=== PATIENT | female | born 1985 | race Caucasian/White ===

== ENCOUNTER 2025-01-16 05:13 | Inpatient (IN) | payer OTHER, BC, MEDICAID ==
[~2025-01-16] VITALS: Ht 160 cm; Wt 86.2 kg
--- NOTE | ~2025-01-16 | OR ---
[facility] [address] [place] [address] Draft DATE OF OPERATION: 01/16/2025 SURGEON: Elvia Owens DO PREOPERATIVE DIAGNOSES: 1. Intrauterine at 39 weeks 3 days gestation. 2. Large fibroid uterus. 3. In vitro fertilization . 4. Abnormal glucose in . 5. section by maternal request. POSTOPERATIVE DIAGNOSES: 1. Intrauterine at 39 weeks 3 days gestation. 2. Large fibroid uterus. 3. In vitro fertilization . 4. Abnormal glucose in . 5. section by maternal request. PROCEDURE PERFORMED: Primary low transverse section by maternal request. ANESTHESIA: Spinal with postoperative TAP block. QUANTITATIVE BLOOD LOSS: 718 mL. DRAINS: Naik to gravity. COMPLICATIONS: None. FINDINGS: Delivery of viable female born in the JENNIE position via primary low transverse uterine incision. Large amount of clear amniotic fluid. Nuchal cord x1 loose and was easily reduced. Large, approximately 8 cm, subserosal fibroid in the anterior aspect of the uterus near the left cornu with no palpable impingement or distortion of the uterine cavity. Hemostasis at the end of the procedure. PATIENT NAME: MANNIE VILLALBA OPERATIVE REPORT DATE OF : 87 REPORT #: [id number] PHYSICIAN: ELVIA OWENS) PCP: ORLY HULL REPORT IS CONFIDENTIAL AND NOT TO BE RELEASED WITHOUT AUTHORIZATION [facility] [address] [place], [place] [address] Draft INDICATIONS: Ms. Villalba is a very pleasant 39-year-old, G4, P0-0-3-0, with IUP at 39 weeks 3 days gestation, presents to Labor and Delivery for scheduled primary by maternal request. complicated by IVF , large fibroid uterus and abnormal glucose and after careful consideration and deliberation, the patient and her partner have requested primary . Risks, benefits, and alternatives were discussed in detail with the patient. The patient understands and wished to proceed with the procedure. DESCRIPTION OF PROCEDURE: The patient was taken to the OR. A time-out was performed to confirm correct patient, correct procedure. Spinal anesthesia was adequately established. The patient was prepped and draped in the supine position with a bump under the right hip. Naik catheter was inserted. The patient received Ancef 2 g preoperatively per SCIP protocol and no heparin was indicated. Once the patient was prepped and draped and neural axial anesthesia noted to be adequate, a Pfannenstiel skin incision was made approximately 2 cm over the pubic symphysis. Incision was carried down to the fascia. Fascia was nicked in the midline. Fascial incision was extended bilaterally using curved Wall scissors. The fascia was grasped with Ciarra's, elevated, and the underlying rectus muscle dissected off bluntly sharply. The rectus was bluntly divided in midline. The peritoneum was bluntly entered. Peritoneal incision was extended cephalad-caudad using sharp and blunt dissection. Surgeon's hand was placed into the abdomen and careful evaluation of the uterus was performed. The known large fibroid was located in the upper aspect of the uterus well away from the lower uterine segment. The decision was made to proceed with planned low-transverse incision. Petey self retractor was placed. Lower uterine segment identified and hysterotomy performed using surgical scalpel. Large amount of clear amniotic fluid was noted. Hysterotomy was extended bilaterally using blunt dissection. The was then delivered in the JENNIE position with the assistance of fundal pressure. Nuchal cord x1 noted and reduced without difficulty. The remainder of the delivered without difficulty and was vigorous and cried upon delivery. Delayed cord clamping x1-2 minutes was performed. Cord was doubly clamped, cut, and the handed to the waiting pediatric team for further care. Cord blood was obtained for routine analysis. The placenta was expressed, intact with a centrally inserted three-vessel cord without difficulty. Pitocin was administered per protocol. Normal blood loss was noted. Hysterotomy was closed in two layers with 0 Monocryl, the first being a running locked suture and the second being a running imbricating suture. Hysterotomy was repaired after the uterine cavity was cleared of any remaining products of conception or clot. After the hysterotomy was closed, the uterus was noted to be hemostatic. The pelvis was irrigated. The uterus was taken through the Pfannenstiel incision and carefully evaluated demonstrating a subserosal fibroid without significant intramural or submucosal component. The uterus was replaced and hemostasis was appreciated. The peritoneum was then reapproximated using 2-0 Vicryl PATIENT NAME: MANNIE VILLALBA OPERATIVE REPORT DATE OF : 87 REPORT #: [id number] PHYSICIAN: ELVIA OWENS DO (JD) PCP: ORLY HULL REPORT IS CONFIDENTIAL AND NOT TO BE RELEASED WITHOUT AUTHORIZATION [address] [address] Draft in a running nonlocked manner. Rectus was made hemostatic with judicious use of Bovie electrocautery. The rectus was loosely plicated in the midline with three interrupted sutures of 0 Vicryl. Fascia was reapproximated using 0 Vicryl in a running nonlocked manner. Subcu was made hemostatic with Bovie electrocautery, irrigated and reapproximated using 3-0 Vicryl. Skin was reapproximated using 2-0 Quill suture in a subcuticular stitch. The uterus was Crede'd for scant amount of blood. Mother and baby recovering well and remained in the OR for postoperative TAP block. Sponge, needle and instrument counts correct x2 at the end of the procedure. DO JERRELL Bartlett/MIKAEL /[id number] Copies: ~ PATIENT NAME: MANNIE VILLALBA OPERATIVE REPORT DATE OF : 87 REPORT #: [id number] PHYSICIAN: ELVIA OWENS DO (JD) PCP: ORLY HULL REPORT IS CONFIDENTIAL AND NOT TO BE RELEASED WITHOUT AUTHORIZATION
[~2025-01-16 05:13] MED LIST: ESTRADIOL20 MG/1 ML IM; LACTATED RINGER'S 1,000 ML IV SCH; LACTATED RINGER'S 2,000 ML IV PRN; METFORMIN HCL500 MG PO; PROGESTERO50 MG/1 M1 IM
[2025-01-16 05:54] LABS: AMPHETAMINES, URINE NEGATIVE (NEGATIVE); BARBITURATES, URINE NEGATIVE (NEGATIVE); BENZODIAZEPINE, URINE NEGATIVE (NEGATIVE); BUPRENORPHINE, URINE NEGATIVE (NEGATIVE); CANNABINOID, URINE NEGATIVE (NEGATIVE); COCAINE, URINE NEGATIVE (NEGATIVE); ECSTASY, URINE NEGATIVE (NEGATIVE); FENTANYL, URINE NEGATIVE (NEGATIVE); METHADONE, URINE NEGATIVE (NEGATIVE); OPIATES, URINE NEGATIVE (NEGATIVE); OXYCODONE, URINE NEGATIVE (NEGATIVE); PHENCYCLIDINE, URINE NEGATIVE (NEGATIVE)
[2025-01-16 06:18] LABS: HEMATOCRIT 36.5 % (35.0-50.0); MCH 31.5 (27-36); MCHC 35.7 g/dl (30-36); MCV 88.2 fl (81-99); RBC 4.14 M/ul (4.3-5.7); RDW 13.6 (10.5-15.0)
[2025-01-16 06:40] VITALS: BP 128/77
[2025-01-16] MEDS ORDERED: SOD+POT BICARB/CITRIC ACID 2 EA TABLET.EFF PO SCH (07:00)
[2025-01-16] MEDS ORDERED: CEFAZOLIN SODIUM 2 GM/20 ML SYR IV SCH (07:00)
[2025-01-16] MEDS ORDERED: IBLOOD GLUCOSE TEST STRIP 1 EA TEST VI PRN (07:00)
[2025-01-16] MEDS ORDERED: LIDOCAINE HCL 1% 5 ML SDV INJ ONE (07:00)
[2025-01-16] MEDS ORDERED: DEXAMETHASONE SOD PHOS 4 MG/ML VIAL ONE (07:01)
[2025-01-16] MEDS ORDERED: ondansetron HCL 4 MG/2 ML VIAL ONE (07:01)
[2025-01-16] MEDS ORDERED: LIDOCAINE HCL 2% 5 ML SDV ONE (07:01)
[2025-01-16] MEDS ORDERED: PHENYLEPHRINE HCL 10 MG/ML VIAL ONE (07:01)
[2025-01-16] MEDS ORDERED: OXYTOCIN 10 UNITS/ML VIAL ONE (07:01)
[2025-01-16] MEDS ORDERED: KETOROLAC TROMETHAMINE 30 MG/ML VIAL ONE (07:01)
[2025-01-16] MEDS ORDERED: dexmedeTOMIDine HCl 200 MCG/2 ML VIAL ONE (07:01)
[2025-01-16] MEDS ORDERED: fentaNYL citrate 100 MCG/2 ML VIAL ONE (07:01)
[2025-01-16] MEDS ORDERED: BUPIVACAINE 0.75% IN DEXTROSE 2 ML AMP ONE (07:01)
[2025-01-16] MEDS ORDERED: SODIUM CHLORIDE 0.9% 20 ML IV ONE (07:02)
[2025-01-16] MEDS ORDERED: ePHEDrine sulfate 50 MG/ML AMP ONE (07:02)
[2025-01-16 07:12] LABS: ABO B; RH POSITIVE
[2025-01-16 07:13] LABS: ABO B; RH POSITIVE
[2025-01-16 07:13] LABS: ANTIBODY SCREEN NEGATIVE
[2025-01-16 07:16] LABS: IS CROSSMATCH COMPATIBLE
[2025-01-16] MEDS ORDERED: Ropivacaine HCl 0.5% 30 ML VIAL ONE (07:57)
[2025-01-16] MEDS ORDERED: SODIUM CHLORIDE 0.9% 60 ML IV ONE (07:57)
[2025-01-16] MEDS ORDERED: LACTATED RINGER'S 1,000 ML IV ONE (08:08)
[2025-01-16] MEDS ORDERED: ACETAMINOPHEN 1,000 MG/100 ML VIAL ONE (08:10)
--- NOTE | 2025-01-16 08:51 | NUR ---
01/16/25 0851 Sita Yun PATIENT'S IS AT THE BEDSIDE. BABY IS TO THE BREAST WITH ASSIST OF JOE SCANLON.
[2025-01-16] MEDS ORDERED: LACTATED RINGER'S 1,000 ML IV SCH (08:55)
[2025-01-16] MEDS ORDERED: OXYCODONE/APAP 5/325 TAB PO PRN (09:00)
[2025-01-16] MEDS ORDERED: bisacodyL 10 MG SUPP PR PRN (09:00)
[2025-01-16] MEDS ORDERED: ondansetron HCL 4 MG/2 ML VIAL IV PRN ×2 (09:00→11:45)
[2025-01-16] MEDS ORDERED: OXYTOCIN/0.9 % SODIUM CHLORIDE 500 ML IV SCH (09:00)
[2025-01-16] MEDS ORDERED: PROMETHAZINE HCL 25 MG TAB PO PRN (09:00)
[2025-01-16] MEDS ORDERED: OXYCODONE HCL 5 MG TAB PO PRN (09:00)
[2025-01-16] MEDS ORDERED: METOCLOPRAMIDE HCL 10 MG/2 ML SDV IV PRN (09:00)
[2025-01-16] MEDS ORDERED: SENNOSIDES/DOCUSATE 1 EA TAB PO SCH (09:00)
[2025-01-16] MEDS ORDERED: HYDROCODONE/ACETA 5/325 TAB PO PRN (09:00)
[2025-01-16] MEDS ORDERED: PROCHLORPERAZINE EDISYLATE 10 MG/2 ML VIAL IV PRN (09:00)
[2025-01-16] MEDS ORDERED: PROMETHAZINE HCL 25 MG SUPP PR PRN (09:00)
[2025-01-16 09:03] VITALS: BP 103/60
[2025-01-16] MEDS ORDERED: SIMETHICONE 80 MG CHEW PO SCH (11:00)
[2025-01-16] MEDS ORDERED: diphenhydrAMINE HCL 50 MG/ML VIAL IV PRN (11:45)
[2025-01-16] MEDS ORDERED: KETOROLAC TROMETHAMINE 30 MG/ML VIAL IV PRN (11:45)
[2025-01-16] MEDS ORDERED: NALOXONE HCL 0.4 MG SYR IV PRN (11:45)
[2025-01-16] MEDS ORDERED: HYDROmorphone HCL 1 MG/ML SYR IV PRN (11:45)
[2025-01-16] MEDS ORDERED: MORPHINE SULFATE 4 MG/ML VIAL IV PRN (11:45)
[2025-01-16] MEDS ORDERED: KETOROLAC TROMETHAMINE 30 MG/ML VIAL IV SCH (14:00)
[2025-01-16] MEDS ORDERED: ENOXAPARIN SODIUM 40 MG/0.4 ML SYR SUB-Q SCH (16:00)
[2025-01-17 05:47] LABS: HEMOGLOBIN 9.8 g/dL (12.0-18.0); MCH 32.3 (27-36); MCHC 36.3 g/dl (30-36); MCV 88.9 fl (81-99); RBC 3.04 M/ul (4.3-5.7); RDW 13.8 (10.5-15.0)
--- NOTE | 2025-01-17 07:15 | PR ---
[facility] [address] [facility] [place], [place] [address] Signed PP Progress Notes Datetime Report Generated by CPN: 01/17/2025 07:15 SUBJECTIVE: [id number] Pain: Within Normal Limits Nausea/Vomiting: Denies Bowel Movement: No Vital Signs: [id number] Vital Signs: Reviewed; Within Normal Limits EXAM: Ongoing Cardiovascular: Normal Respiratory: Normal Abdomen/Uterus: Normal Lochia: Normal Vulva/Perineum: Not Done Breasts: Not Done CVA Tenderness: Normal Extremities: Normal Progress: Normal Exam Comments: Fundus firm U-2 nontender. and incision exam deferred at this time. Will have RN check incision this morning IMPRESSION/PLAN/PROCEDURES: [id number] Impression: Normal Progression Progress Notes: Pt seen and examined. Doing well. Ambulating, voiding, and tolerating full diet. Pain and lochia minimal. well. No fevers/ chills. Hgb 9.8. Anticipate d/c home POD # 2-3. Signing Physician: Elvia Owens DO Copies: ~ *Electronically Signed* 01/17/25 0715 ELVIA OWENS (MER) DO PATIENT NAME: MANNIE VILLALBA PROGRESS NOTE DATE OF : 87 PHYSICIAN: ELVIA OWENS) DO RPT #: [id number] REPORT IS CONFIDENTIAL AND NOT TO BE RELEASED WITHOUT AUTHORIZATION
[2025-01-17] MEDS ORDERED: ondansetron HCL 4 MG/2 ML VIAL IV PRN (11:45)
[2025-01-17] MEDS ORDERED: IBUPROFEN 600 MG TAB PO SCH (14:00)
== END 2025-01-18 15:47 | disposition home or self-care (01) | DRG 788 ==
LOC: FBC 05:13
PROVIDERS: ADMIT Obstetrics & Gynecology; ATTEND Obstetrics & Gynecology
PROC: 10D00Z1 Extraction of Products of Conception, Low, Open Approach (ICD-10-PCS; principal; 2025-01-16 07:30)
DX: O34.13 Maternal care for benign tumor of corpus uteri, third trimester (principal); D25.2 Subserosal leiomyoma of uterus; Z3A.39 39 weeks gestation of pregnancy; O69.81X0 Labor and delivery complicated by cord around neck, without compression, not applicable or unspecified; O99.814 Abnormal glucose complicating childbirth; R73.09 Other abnormal glucose; Z37.0 Single live birth; Z87.891 Personal history of nicotine dependence; Z79.82 Long term (current) use of aspirin
CPT/HCPCS: 01961; 36415; 80307; 85027; 86850; 86900; 86901; 86922; A9270; J0131; J0690; J1100; J1650; J1885; J2003; J2371; J2405; J2590; J2795; J3010; J7121